=== PATIENT | female | born 1980 | race Caucasian/White ===

== ENCOUNTER 2021-03-24 15:07 | Emergency (ER) | payer OTHER, SELFPAY ==
--- NOTE | ~2021-03-24 | XR_ITS ---
XR cervical spine 4-5V DATE: 03/24/2021 15:44 INDICATION: Posterior neck pain for 4 days following chiropractor visit TECHNIQUE: AP, open-mouth, odontoid, lateral, swimmer views COMPARISON: 10/16/2016 cervical spine FINDINGS: There is straightening of the cervical spine which may be due to muscle spasm. C1 and C2 are normally aligned and the odontoid process is intact. No fracture or dislocation, locked facet or prevertebral soft tissue swelling. There is mild to moderate degenerative disc disease at C5-6. There is mild uncovertebral joint spurri ng at C5-6, greater on the right. IMPRESSION: Straightening of the cervical spine which may be due to muscle spasm Mild/moderate degenerative disc disease and mild uncovertebral joint spurring at C5-6 Reviewed, dictated and finalized at location A. IMPRESSION: Straightening of the cervical spine which may be due to muscle spas m Mild/moderate degenerative disc disease and mild uncovertebral joint spurring a t C5-6
[2021-03-24 15:20] VITALS: BP 139/90; PULSE 62; RESP 16; TEMP 36.7; O2SAT 100
[2021-03-24 15:27] VITALS: BP 139/90; PULSE 62; RESP 16; TEMP 36.7; O2SAT 100
--- NOTE | 2021-03-24 16:05 | ED.NECK ---
HPI - Neck Pain/Injury General Chief Complaint: Neck Pain/Injury Stated Complaint: neck pain Time Seen by Provider: 03/24/21 16:07 Source: patient and RN notes reviewed Mode of arrival: ambulatory Limitations: no limitations History of Present Illness HPI Narrative: 41-year-old female presents concern for acute neck pain without injury. Reports a history of chronic neck pain for which she has been seeing a chiropractor. Reports she has been seeing a chiropractor for 4 weeks reports over the last several days the pain became significantly worse. Reports pain radiates down both arms with some occasional tingling in her fingers. She reports achy arms and headache. She denies weakness in any extremity. She denies fever. Denies rash, redness, bruising, warmth. Reports taking hydrocodone with no relief. Reports using ice and heat with no relief. Reports worsening pain with certain positions. MD complaint: neck pain Related Data Allergies Allergy/AdvReac Type Severity Reaction Status Date / Time amoxicillin Allergy Unknown Hives Unverified 03/24/21 15:27 Penicillins Allergy Unknown Hives Unverified 03/24/21 15:27 Sulfa (Sulfonamide Allergy Unknown Hives Unverified 03/24/21 15:27 Antibiotics) Review of Systems Review of Systems: CONSTITUTIONAL: Denies malaise, chills, sweats, or fever. EYES: Denies visual changes CARDIOVASCULAR: Denies chest pain, palpitations, or edema. RESPIRATORY: Denies cough or dyspnea. SKIN: Denies bruising, redness, warmth, rash or itching. MUSCULOSKELETAL: Reports neck pain that starts at the right base of the skull and radiates down to the trapezius muscles, reports intermittently achy arms and tingling fingers NEUROLOGIC: Denies numbness, weakness. Reports headache. All systems reviewed & are unremarkable except as noted in HPI and below PMFSH Comments At time of signature, agree with nursing past medical, surgical, social and family history. There is no relevant family history pertinent to the presenting complaint Exam Narrative: GENERAL: Well-appearing, well-nourished, and in no acute distress. HEAD: Normocephalic, atraumatic. EYES: PERRLA, sclera clear, and EOMI. No nystagmus. ENT: Mucous membranes moist. NECK: Supple. No lymphadenopathy. No cervical tenderness CHEST: No respiratory distress. Speaks in full sentences. HEART: Regular rate and rhythm. No murmur heard. Normal peripheral pulses. EXTREMITIES: Bilateral upper extremities have grossly normal range of motion, no edema, normal strength and sensation. SKIN: Warm, dry, no visible rash. NEURO: Alert and oriented x3. PSYCH: Normal mood and affect Course Course Emergency Course: Patient is aware of diagnosis, understands and agrees to treatment plan. Anticipatory guidance given. Patient agrees to follow-up as directed and is aware of reasons to seek care at the emergency department. Portions of this record may have been created with voice recognition software Vital Signs Vital signs: Vital Signs Temperature 98.1 F 03/24/21 15:20 Pulse Rate 62 03/24/21 15:20 Respiratory Rate 16 03/24/21 15:20 Blood Pressure 139/90 03/24/21 15:20 Pulse Oximetry 100 03/24/21 15:20 Temperature 98.1 F 03/24/21 15:27 Pulse Rate 62 03/24/21 15:27 Respiratory Rate 16 03/24/21 15:27 Blood Pressure 139/90 03/24/21 15:27 Pulse Oximetry 100 03/24/21 15:27 Reviewed. MDM - Neck Pain/Injury MDM Narrative Medical decision making narrative: Exam findings and imaging show no acute concerns or changes; patient is non-toxic appearing and is in no distress. Patient is appropriate for outpatient treatment and follow-up. Differential Diagnosis Differential diagnosis: Likely disc disorder of cervical region, closed subluxation of cervical spine, cervical radiculopathy, torticollis and strain of neck muscle Imaging Data My impression: Images reviewed, interpreted by radiologist, agree, see report. Radiologist's impression: XR cervi
[2021-03-24] MEDS: KETOROLAC (*BKC) 60 MG/2 ML VIAL IM (16:22)
== END 2021-03-24 16:34 | disposition home or self-care (01) ==
PROVIDERS: Emergency Provider Nurse Practitioner; PCP Internal Medicine
DX: M62.838 Other muscle spasm (principal)
CPT/HCPCS: 72050; 99213; G0463; J1885

== ENCOUNTER → 2021-12-06 07:02 | Outpatient (CLI) | payer OTHER, SELFPAY ==
--- NOTE | ~2021-12-06 | MR_ITS ---
EXAMINATION: MR cervical spine wo con DATE: 12/06/2021 07:34 INDICATION: Left arm pain with multiple nerve symptoms TECHNIQUE: Magnetic resonance imaging (MRI) of the cervical spine was performed without intravenous c ontrast. Sequences included sagittal T2-weighted FSE, sagittal T2-weighted FS FSE, sagittal T1-weight ed FSE, axial MERGE and axial T2-weighted FSE. COMPARISON: Cervical spine radiographs dated 03/24/2021 FINDINGS: Draining of the normal cervical lordosis. Vertebral body heights are normal. Bone marrow signal int ensity is normal. Mild disc height loss with small endplate osteophytes at C5-C6. Annular fissures at both C5-C6 and C6-C7. Cord signal intensity is normal. Cervical soft tissues are unremarkable. The f ollowing disc levels are specifically discussed: C2-C3: The disc does not extend beyond the endplate margin. There is no uncovertebral joint osteoarth ritis. There is mild bilateral facet joint osteoarthritis. There is no neural foraminal stenosis. The re is no central canal stenosis. C3-C4: The disc does not extend beyond the endplate margin. There is mild left uncovertebral joint os teoarthritis. There is mild left and minimal right facet joint osteoarthritis. There is mild left judah ral foraminal stenosis. There is no central canal stenosis. C4-C5: Disc is mildly bulging. There is mild bilateral uncovertebral joint osteoarthritis. There is m ild left and minimal right facet joint osteoarthritis. There is mild left neural foraminal stenosis. There is no central canal stenosis. C5-C6: Annular fissure with central disc extrusion with disc material extending 304 mm cephalad and c audal to the level of the endplates. There is moderate bilateral uncovertebral joint osteoarthritis. There is mild right and moderate left facet joint osteoarthritis. There is mild right and mild to mod erate left neural foraminal stenosis. There is mild central canal stenosis. C6-C7: Annular fissure and small central disc protrusion. There is mild bilateral, right greater than left uncovertebral joint osteoarthritis. There is minimal bilateral facet joint osteoarthritis. Ther e is mild left neural foraminal stenosis. There is mild central canal stenosis. C7-T1: The disc does not extend beyond the endplate margin. There is mild left uncovertebral joint os teoarthritis. There is mild bilateral facet joint osteoarthritis. There is mild left neural foraminal stenosis. There is no central canal stenosis. IMPRESSION: 1. Mild cervical spondylosis. Reviewed, dictated and finalized at location A.
== END ==
PROVIDERS: PCP Internal Medicine
DX: M79.602 Pain in left arm (principal); M47.892 Other spondylosis, cervical region
CPT/HCPCS: 72141

== ENCOUNTER 2022-07-01 15:26 | Emergency (ER) | payer OTHER, SELFPAY ==
[2022-07-01 15:30] VITALS: BP 120/61; PULSE 70; RESP 16; TEMP 36.5; O2SAT 100
--- NOTE | 2022-07-01 15:32 | ED.URI ---
HPI - URI/Sore Throat General Chief Complaint: Upper Respiratory Infection Stated Complaint: sore throat/cold Time Seen by Provider: 07/01/22 15:35 Source: patient, RN notes reviewed and old records reviewed Mode of arrival: ambulatory Limitations: no limitations History of Present Illness HPI Narrative: 42-year-old female presents to the [facility] with sore throat since Friday night. Denies any other symptoms. Reports child has an ear infection. Has taken ibuprofen, no cough or cold medicine. Related Data Home Medications Medication Instructions Recorded Confirmed No Home Medications 07/01/22 07/01/22 Allergies Allergy/AdvReac Type Severity Reaction Status Date / Time amoxicillin Allergy Unknown Hives Unverified 07/01/22 15:40 Penicillins Allergy Unknown Hives Unverified 07/01/22 15:40 Sulfa (Sulfonamide Allergy Unknown Hives Unverified 07/01/22 15:40 Antibiotics) Review of Systems Review of Systems: All systems reviewed & are unremarkable except as noted in HPI and below Constitutional: Constitutional: Reports no additional constitutional complaints Eyes: Eyes: Reports no additional eye complaints ENT: Reports as per HPI and Reports sore throat Cardiovascular: Cardiovascular: Reports no additional cardiovascular complaints, Denies chest pain and Denies dyspnea Respiratory: Respiratory: Reports no additional respiratory complaints, Denies chest congestion, Denies cough and Denies dyspnea Gastrointestinal: Gastrointestinal: Reports no additional gastrointestinal complaints, Denies abdominal pain, Denies nausea and Denies vomiting Musculoskeletal: Musculoskeletal: Reports no additional musculoskeletal complaints Integumentary/Breasts: Skin/Breast: Reports system reviewed and no additional complaints, except as docu Neurologic: Reports system reviewed and no additional complaints, except as documented Psychiatric: Psychiatric: Reports no additional psychiatric complaints Allergic/Immunologic: Allergic/Immunologic: Reports no additional allergic/immunologic complaints PMFSH Comments At the time of my signature, I reviewed and agree with the nursing past medical, surgical, social, and family history. There is no relevant family history pertinent to the patient complaint. Exam Const: General: cooperative, healthy appearing, comfortable, no acute distress, well developed, alert and well nourished Nutritional Appearance: well nourished Orientation/consciousness: patient oriented x3 Limitations: no limitations HENMT: Head: normal to inspection Ears: hearing grossly normal bilaterally and external ears normal Face/Nose/Sinus: Normal external nose present, Normal nares present, Normal nasal mucous membranes and turbinates present and normal facial exam Face and sinus: normal facial exam Mouth: Yes Normal oral and palatal mucosa present, Yes lip normal and Yes moist mucous membranes Throat: posterior oropharynx normal and uvula midline Eyes: General: appearance normal, both eyes and all related structures Alignment and Position: alignment normal Periorbital: periorbital findings normal Conjunctivae: conjunctivae normal Pupils: Equal, round and reactive pupils present EOM: EOMs intact bilaterally Neck: Neck: normal visual inspection, full ROM, no lymphadenopathy and no meningeal signs Chest: Chest palpation & inspection: normal inspection of the chest Resp: Effort & Inspection: normal respiratory effort and able to speak in complete sentences Auscultation: clear to auscultation bilaterally, no crackles, no rales, no rhonchi and no wheezes Cardio: Rate: regular rate Rhythm: regular rhythm Back/Spine/Pelvis: Cervical Spine: cervical ROM normal Thoracic/Lumbar Spine: No thoracic spinal tenderness Skin: General skin exam: normal color and no rashes or lesions noted Lesions: no lesions Rashes: no rashes Wounds: no wounds Neuro: General: patient oriented x3, gait normal, tone normal, moves all e
== END 2022-07-01 16:01 | disposition home or self-care (01) ==
PROVIDERS: Emergency Provider Nurse Practitioner
DX: J06.9 Acute upper respiratory infection, unspecified (principal); J02.9 Acute pharyngitis, unspecified
CPT/HCPCS: 87081; 87880; 99213; G0463

== ENCOUNTER → 2022-07-24 13:26 | Outpatient (CLI) | payer OTHER, SELFPAY ==
--- NOTE | ~2022-07-24 | XR_ITS ---
EXAMINATION: XR ribs LT 2V w CXR 2V Exam Date/Time: 07/24/2022 13:37 LOSS PREVENTION ANALYST HISTORY: Left sided chest wall pain Comparison: 02/23/18. RESULT: Lines, tubes, and devices: None. Lungs and pleura: Clear. Cardiomediastinal silhouette: Stable. Other: No acute osseous or upper abdominal finding. IMPRESSION: No acute cardiopulmonary process.No acute osseous finding in the left ribs. Reviewed, dictated and finalized at location K. PREVENTION ANALYST
== END ==
PROVIDERS: PCP Internal Medicine; Visit Provider Internal Medicine
DX: R07.89 Other chest pain (principal)
CPT/HCPCS: 71046; 71100

== ENCOUNTER → 2022-08-13 07:41 | Outpatient (CLI) | payer OTHER, SELFPAY ==
--- NOTE | ~2022-08-13 | MMUS_ITS ---
EXAMINATION: MM diagnostic marcelino BI w mauri, US breast LT limited HISTORY: Left superior breast pain TECHNIQUE: ML, MLO and CC 3-D tomosynthesis images of both breasts were performed and synthetic 2-D i mages were generated. CAD analysis was submitted and interpreted. High resolution targeted left breas t ultrasound examination at area of clinical complaint at 12:00 7 cm from the nipple was performed. COMPARISON: None BREAST PARENCHYMAL COMPOSITION: The breasts are extremely dense, which lowers the sensitivity of mamm ography. FINDINGS: MAMMOGRAPHIC FINDINGS: No suspicious mass or architectural distortion, malignant calcification, skin thickening or retractio n is detected. ULTRASOUND: No suspicious mass or shadowing, cyst or other significant abnormality is detected at the area of pat ient complaint of left breast pain at 12:00 7 cm from the nipple. IMPRESSION: 1. No mammographic evidence of malignancy 2. Routine mammographic screening is recommended. BI-RADS Category 1: Negative Reviewed, dictated and finalized at location A. IMPRESSION: 1. No mammographic evidence of malignancy 2. Routine mammographic screening is recommended. BI-RADS Category 1: Negative
== END ==
PROVIDERS: PCP Internal Medicine; Visit Provider Internal Medicine
DX: N64.4 Mastodynia (principal)
CPT/HCPCS: 76642; 77062; 77066; G0279

== ENCOUNTER 2022-11-25 11:45 | Emergency (ER) | payer OTHER, SELFPAY ==
--- NOTE | ~2022-11-25 | XR_ITS ---
XR knee LT min 4V DATE: 11/25/2022 13:29 INDICATION: Left anterior knee pain after injury TECHNIQUE: 5 views COMPARISON: None FINDINGS: Mild particular spurring of the patella consistent with mild osteoarthritis. Joint spaces a re well preserved. No radiopaque intra-articular loose body or, calcinosis. No fracture or dislocatio n or joint effusion. No periosteal reaction or bone destruction. IMPRESSION: Mild patellofemoral osteoarthritis Reviewed, dictated and finalized at location A.
[2022-11-25 11:57] VITALS: BP 130/77; PULSE 80; RESP 16; TEMP 36.6; O2SAT 99
--- NOTE | 2022-11-25 12:17 | ED.LOWEXIN ---
HPI - Extremity Injury (Lower) General Chief Complaint: Extremity Injury, Lower Stated Complaint: Left knee injury Time Seen by Provider: 11/25/22 13:00 Source: patient and RN notes reviewed Mode of arrival: ambulatory Limitations: no limitations History of Present Illness HPI Narrative: 42 year old female presents with concern for left knee injury. She reports 11 weeks ago she was doing a handstand and hit her knee on a wall. She reports very severe pain at that time. She reports she used ice, compression, elevation, ibuprofen. She reports she has not had much improvement, the pain is worse when she sits for a long time or when she has been standing for a long time. She reports it feels like there is a bump on the front of the knee. She denies redness, warmth, decreased sensation, strength, range of motion. Reports she has been modifying her activities to help her knee pain MD complaint: knee injury Related Data Home Medications Medication Instructions Recorded Confirmed No Home Medications 07/01/22 11/25/22 Allergies Allergy/AdvReac Type Severity Reaction Status Date / Time amoxicillin Allergy Mild Hives Verified 11/25/22 11:54 Penicillins Allergy Mild Hives Verified 11/25/22 11:54 Sulfa (Sulfonamide Allergy Mild Hives Verified 11/25/22 11:54 Antibiotics) Review of Systems Review of Systems: CONSTITUTIONAL: Denies malaise, chills, sweats, or fever. SKIN: Denies rash or itching, open skin, laceration, abrasion, redness, warmth, swelling. MUSCULOSKELETAL: Reports left knee pain NEUROLOGIC: Denies numbness, weakness All systems reviewed & are unremarkable except as noted in HPI and below PMFSH Comments At time of signature, agree with nursing past medical, surgical, social and family history. There is no relevant family history pertinent to the presenting complaint Exam Narrative: GENERAL: Well-appearing, well-nourished, and in no acute distress. HEAD: Normocephalic, atraumatic. EYES: PERRLA, conjunctivae clear NECK: Supple. CHEST: Speaks in full sentences. No respiratory distress. HEART: Regular rate and rhythm. Normal and equal peripheral pulses. EXTREMITIES: Left knee has grossly normal strength and sensation, grossly normal range of motion. No edema, erythema, or ecchymosis. Normal sensation with sensitivity to light touch and pain. Anterior knee tenderness. No open wounds, no skin tenting, no devitalized tissue or atrophy, no trophic changes, alignment normal, nearby joints and structures intact. Anterior patella deformity palpable. Distal pulses palpable and equal bilaterally, skin warm, dry, pink. Capillary refill less than 3 seconds. SKIN: Warm, dry, no rash. NEURO: Alert and oriented x3. PSYCH: Normal mood and affect Course Course Emergency Course: Patient is aware of diagnosis, understands and agrees to treatment plan. Anticipatory guidance given. Patient agrees to follow-up as directed and is aware of reasons to seek care at the emergency department. Portions of this record may have been created with voice recognition software Level of Care: Express Care Visit Vital Signs Vital signs: Vital Signs Temperature 97.9 F 11/25/22 11:57 Pulse Rate 80 11/25/22 11:57 Respiratory Rate 16 11/25/22 11:57 Blood Pressure 130/77 11/25/22 11:57 Pulse Oximetry 99 11/25/22 11:57 Oxygen Delivery Room Air 11/25/22 11:57 Temperature 97.9 F 11/25/22 11:57 Pulse Rate 80 11/25/22 11:57 Respiratory Rate 16 11/25/22 11:57 Blood Pressure 130/77 11/25/22 11:57 Pulse Oximetry 99 11/25/22 11:57 Oxygen Delivery Room Air 11/25/22 11:57 Reviewed. MDM - Extremity Injury (Lower) MDM Narrative Medical decision making narrative: Patients injury and pain is consistent with musculoskeletal etiology. No signs of neurological or vascular compromise on exam. Compartments and tissues are soft without signs of compartment syndrome. Pain is felt appropriate for furthe
== END 2022-11-25 13:22 | disposition home or self-care (01) ==
PROVIDERS: Emergency Provider Nurse Practitioner; PCP Internal Medicine
DX: S89.92XA Unspecified injury of left lower leg, initial encounter (principal); W22.09XA Striking against other stationary object, initial encounter
CPT/HCPCS: 73564; 99213; G0463

== ENCOUNTER 2023-05-21 12:36 | Outpatient (RCR) | payer OTHER, SELFPAY ==
[2023-05-22] MEDS: RHO(D) IMMUNE GLOBULIN 300 MCG/2 ML SYRINGE IM (11:47)
== END 2023-08-19 23:59 | disposition home or self-care (01) ==
LOC: ANHLAB 12:36
PROVIDERS: PCP Internal Medicine; Visit Provider Obstetrics & Gynecology
DX: Z29.13 Encounter for prophylactic Rho(D) immune globulin (principal); O36.0190 Maternal care for anti-D [Rh] antibodies, unspecified trimester, not applicable or unspecified; Z3A.00 Weeks of gestation of pregnancy not specified
CPT/HCPCS: 36415; 85461; 86850; 86900; 86901; 90384; 96372; J2790

== ENCOUNTER 2023-07-30 11:27 | Outpatient (CLI) | payer OTHER, SELFPAY ==
[2023-07-30 12:01] VITALS: BP 126/81; PULSE 76
[2023-07-30 12:13] LABS: Basophils Percent Auto 0.4 % (0.2-1.2); Eosinophils Absolute Auto 0.1 K/mm3 (0-0.3); Eosinophils Percent Auto 0.6 % (0-4.4); Hematocrit 36.3 % (37.0-47.0); Hemoglobin 12.5 g/dL (12.0-15.0); Immature Granulocyte Absolute 0.07 K/mm3 (0.00-0.031); Immature Granulocyte Percent A 0.7 % (0-0.5); Lymphocytes Absolute Auto 1.73 K/mm3 (0.9-3.2); Mean Corpuscular HGB Conc 34.4 g/dl (32-36); Mean Corpuscular Hemoglobin 32.3 pg (26-34); Mean Corpuscular Volume 93.8 fl (80-100); Monocytes Absolute Auto 0.7 K/mm3 (0.1-0.6); Monocytes Percent Auto 7.2 % (2.6-8.5); Neutrophils Percent Auto 73.1 % (45.5-73.1); Platelet Count Result 187 k/mm3 (150-375); Red Blood Count 3.87 M/mm3 (4.2-5.4); Red Cell Distribution Width 12.7 % (11.5-14.5); White Blood Count 9.6 K/mm3 (4.5-10.0)
[2023-07-30 12:15] VITALS: BP 124/75; PULSE 79
[2023-07-30 12:18] LABS: Appearance Urine Cloudy (Clear); Bacteria Urine None Seen /hpf; Bilirubin Urine Negative (Negative); Blood Urine Negative (Negative); Color Urine Yellow (Yellow); Glucose Urine UA Negative (Negative); Ketones Urine Negative (Negative); Leukocyte Esterase Ur Negative LEU/UL (Negative); Nitrate Urine Negative (Negative); Non Pathogenic Casts 0-2; Protein Urine Negative (Negative); RBC Urine 0-2 /hpf (0-2); Specific Grav Ur 1.008 (1.001-1.035); Squamous Epithelial Cell Urine Occasional /hpf (Few); Urobilinogen Urine 0.2 mg/dL (<2.0); WBC Urine 0-5 /hpf
[2023-07-30 12:22] LABS: Alanine Aminotransferase 17 U/L (6-35); Albumin Level 3.6 g/dL (3.5-5.1); Alkaline Phosphatase 122 U/L (38-126); Anion Gap 5 mmol/L (8-16); Aspartate Amino Transferase 29 U/L (14-36); Bilirubin,Total 0.3 mg/dL (0.2-1.3); Blood Urea Nitrogen 13 mg/dL (7-17); Calcium 9.3 mg/dL (8.4-10.2); Carbon Dioxide 21 mmol/L (22-30); Chloride 109 mmol/L (98-107); Estimated Glomerular Filt Rate > 60; Glucose 84 mg/dL (65-110); Potassium 3.9 mmol/L (3.4-5.0); Sodium 135 mmol/L (137-145); Uric Acid 6.8 mg/dL (2.5-7.5)
[2023-07-30 12:25] LABS: Creatinine Urine 28.9 mg/dL; Total Protein Urine Random 8 mg/dL; Ur Ttl Prot Creatinine Ratio 0.28 mg/mg (0-0.20)
[2023-07-30 12:30] VITALS: BP 129/76; PULSE 78
[2023-07-30 12:37] LABS: Add Urine Microscopic? YES
--- NOTE | 2023-07-30 12:37 | PM.OBTRLD ---
OB - Triage/Final Diagnosis Visit Information Date of evaluation: 07/30/23 Reason for evaluation: other (pI) Comments/Additional reasons for admission: I have assessed the risk for this patient, Brenda Interiano, and determined that she would benefit from observation care. Evaluation Laboratory results: Laboratory Tests 07/30/23 12:02 WBC 9.6 RBC 3.87 L Hgb 12.5 Hct 36.3 L MCV 93.8 MCH 32.3 MCHC 34.4 RDW 12.7 Plt Count 187 MPV 11.0 H Immature Gran % (Auto) 0.7 H Neut % (Auto) 73.1 Lymph % (Auto) 18.0 L Carter % (Auto) 7.2 Eos % (Auto) 0.6 Baso % (Auto) 0.4 Lymph # (Auto) 1.73 Carter # (Auto) 0.7 H Eos # (Auto) 0.1 Baso # (Auto) 0.0 Abs Immat Gran (auto) 0.07 H Absolute Neuts (auto) 7.0 H Absolute Nucleated RBC 0.0 Nucleated RBC % 0.0 Sodium 135 L Potassium 3.9 Chloride 109 H Carbon Dioxide 21 L Anion Gap 5 L BUN 13 Creatinine 0.70 Estim Creat Clear Calc Not Reportable Estimated GFR > 60 Glucose 84 Uric Acid 6.8 Calcium 9.3 Total Bilirubin 0.3 AST 29 ALT 17 Alkaline Phosphatase 122 Total Protein 6.0 L Albumin 3.6 Urine Color Yellow Urine Appearance Cloudy H Urine pH 7.0 Ur Specific [place] 1.008 Urine Protein Negative Urine Glucose (UA) Negative Urine Ketones Negative Ur Blood (Man) Negative Urine Nitrate Negative Urine Bilirubin Negative Urine Urobilinogen 0.2 Leukocyte Esterase Rfl Negative Urine RBC 0-2 Urine WBC 0-5 Ur Squamous Epith Cells Occasional Urine Bacteria None seen Urine Casts 0-2 U Random Total Protein 8 Urine Creatinine 28.9 Vital signs: Vital Signs - 24 hr 07/30/23 12:01 07/30/23 12:15 07/30/23 12:30 Pulse Rate 76 79 78 Blood Pressure 126/81 124/75 129/76
--- NOTE | 2023-07-30 12:39 | PC.NURSE ---
Dr Kraft informed of lab results, BP and reactive NST. Ok to dc home with precautions.
[2023-07-30 12:45] VITALS: BP 126/81; PULSE 78
== END 2023-07-30 12:45 | disposition home or self-care (01) ==
LOC: ANHOBOP 11:38 → ANHOBPP 11:39
PROVIDERS: PCP Internal Medicine; Visit Provider Obstetrics & Gynecology
DX: O13.9 Gestational [pregnancy-induced] hypertension without significant proteinuria, unspecified trimester (principal); Z3A.00 Weeks of gestation of pregnancy not specified
CPT/HCPCS: 36415; 59025; 80053; 81001; 82570; 84156; 84550; 85025; 99199

== ENCOUNTER 2023-08-07 06:52 | Inpatient (IN) | payer OTHER, SELFPAY ==
[2023-08-07] VITALS (17 sets, daily range): BP systolic 133–144; BP diastolic 70–90; PULSE 75–87; TEMP 36.1–36.8; BMI 29.2
--- NOTE | ~2023-08-07 | US_ITS ---
US venous doppler LE RT DATE: 08/09/2023 10:45 INDICATION: Right calf pain TECHNIQUE: Real-time and color flow imaging and Doppler analysis of the veins of the right lower extr emity COMPARISON: None FINDINGS: The right greater saphenous vein is patent. There is spontaneous and phasic flow and normal augmentation and compression of the deep veins of the right lower extremity. IMPRESSION: No evidence of deep venous thrombosis of right lower extremity Reviewed, dictated and finalized at [facility]. Reviewed, dictated and finalized at [facility]. [facility]
--- NOTE | 2023-08-07 07:04 | P.HP_ITS ---
H&P: HPI History of Present Illness Date/Time: 08/07/23 07:04 Chief Complaint: Gestational hypertension at term Narrative: 43-year-old 4 para 3 last menstrual period uncertain EDC 08/08/2023, confirmed by early ultrasound presents for induction of labor secondary to elevated blood pressures she has slight headache yesterday but headache has otherwise complicated with B strep diabetic screen. 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 Gender identity (if verbalized by the patient): Female Spiritual care concerns: No Meds Home Medications and Allergies Home Medications Medication Instructions Recorded Confirmed Type vits no.126-ferrous fum 1 tablet PO DAILY 07/23/23 07/23/23 History 28 mg iron-folic acid 800 mcg tablet (Classic ) Allergies Allergy/AdvReac Type Severity Reaction Status Date / Time amoxicillin Allergy Mild Hives Verified 07/23/23 13:25 Penicillins Allergy Mild Hives Verified 07/23/23 13:25 Sulfa (Sulfonamide Allergy Mild Hives Verified 07/23/23 13:25 Antibiotics) Exam 2 Const: General: cooperative, healthy appearing and comfortable Nutritional Appearance: average body habitus Orientation/consciousness: oriented to person, oriented to place and oriented to time HENMT: Head: normal to inspection Resp: Effort & Inspection: normal respiratory effort Cardio: Rate: regular rate Rhythm: regular rhythm Heart sounds: S1 normal heart sound present and S2 normal heart sound present GI: Inspection: normal to inspection ( gravid soft uterus) : External Female Exam: normal external appearance Speculum Exam - Vagina: normal appearance of the vagina Speculum Exam - Cervix: normal appearance of the cervix ( /2. FHTs reassuring) Assessment and Plan Assessment and plan (1) Term : Code(s): Z34.90 - Encounter for supervision of normal , unspecified, unspecified trimester Status: Acute (2) Gestational hypertension: Code(s): O13.9 - Gestational [-induced] hypertension without significant proteinuria, unspecified trimester Status: Acute Plan medical induction of labor. PIH labs will be drawn. She has an epidural candidate
[2023-08-07 07:32] LABS: Basophils Absolute Auto 0.1 K/mm3 (0.0-0.1); Basophils Percent Auto 0.6 % (0.2-1.2); Eosinophils Absolute Auto 0.1 K/mm3 (0-0.3); Eosinophils Percent Auto 0.8 % (0-4.4); Hematocrit 36.6 % (37.0-47.0); Hemoglobin 12.4 g/dL (12.0-15.0); Immature Granulocyte Absolute 0.07 K/mm3 (0.00-0.031); Immature Granulocyte Percent A 0.7 % (0-0.5); Lymphocytes Absolute Auto 2.16 K/mm3 (0.9-3.2); Lymphocytes Percent Auto 21.4 % (18.3-44.2); Mean Corpuscular HGB Conc 33.9 g/dl (32-36); Mean Corpuscular Hemoglobin 32.3 pg (26-34); Mean Corpuscular Volume 95.3 fl (80-100); Mean Platelet Volume 11.1 fl (7.4-10.4); Monocytes Absolute Auto 0.7 K/mm3 (0.1-0.6); Monocytes Percent Auto 7.1 % (2.6-8.5); Neutrophils Percent Auto 69.4 % (45.5-73.1); Platelet Count Result 188 k/mm3 (150-375); Red Blood Count 3.84 M/mm3 (4.2-5.4); Red Cell Distribution Width 12.7 % (11.5-14.5); White Blood Count 10.1 K/mm3 (4.5-10.0)
[2023-08-07 07:42] LABS: Alanine Aminotransferase 17 U/L (6-35); Albumin Level 3.3 g/dL (3.5-5.1); Alkaline Phosphatase 113 U/L (38-126); Anion Gap 4 mmol/L (8-16); Aspartate Amino Transferase 26 U/L (14-36); Bilirubin,Total 0.3 mg/dL (0.2-1.3); Blood Urea Nitrogen 11 mg/dL (7-17); Calcium 8.9 mg/dL (8.4-10.2); Carbon Dioxide 19 mmol/L (22-30); Chloride 110 mmol/L (98-107); Estimated Glomerular Filt Rate > 60; Glucose 95 mg/dL (65-110); Potassium 3.8 mmol/L (3.4-5.0); Sodium 133 mmol/L (137-145); Uric Acid 6.4 mg/dL (2.5-7.5)
--- NOTE | 2023-08-07 08:26 | LDADM ---
This patient, Brenda Interiano, was admitted to Labor/Delivery/Recovery 105 on 08/07/23 at 06:52. Plans for labor, pain management and were discussed with patient. Patient/family oriented to hospital policies and general routines including ID bracelet, bed and alarms, visiting hours, pain management, procedures, bathroom and other care routines, personal items, smoking policy, room service/diet and guest tray routines, security routines, and visiting hours. Patient/Family are encouraged to report perceived risks to care and to ask questions if they do not understand what they are told or what they should do. See [facility] for further documentation.
--- NOTE | 2023-08-07 08:43 | WPDANESEPP ---
Anes - Eval Pre Procedure Procedure: Labor Epidural Date/Time: 08/07/23 08:43 Surgeon: Keyana Queen Preop Diagnosis: Pain during labor Pre Op Diagnosis: IOL Patient Data Age: 43 Gender: F Height: 1.7 m Weight: 84.54 kg Last Vital Signs Temp 36.8 C 08/07/23 07:32 Pulse 83 08/07/23 07:46 BP 133/83 08/07/23 07:46 Allergies Allergy/AdvReac Type Severity Reaction Status Date / Time amoxicillin Allergy Mild Hives Verified 07/23/23 13:25 Penicillins Allergy Mild Hives Verified 07/23/23 13:25 Sulfa (Sulfonamide Allergy Mild Hives Verified 07/23/23 13:25 Antibiotics) Home Medications Medication Instructions Recorded Confirmed Type vits no.126-ferrous fum 1 tablet PO DAILY 07/23/23 07/23/23 History 28 mg iron-folic acid 800 mcg tablet (Classic ) Laboratory Tests 08/07/23 07:20 WBC 10.1 H K/mm3 (4.5-10.0) RBC 3.84 L M/mm3 (4.2-5.4) Hgb 12.4 g/dL (12.0-15.0) Hct 36.6 L % (37.0-47.0) MCV 95.3 fl (80-100) MCH 32.3 pg (26-34) MCHC 33.9 g/dl (32-36) RDW 12.7 % (11.5-14.5) Plt Count 188 k/mm3 (150-375) MPV 11.1 H fl (7.4-10.4) Immature Gran % (Auto) 0.7 H % (0-0.5) Neut % (Auto) 69.4 % (45.5-73.1) Lymph % (Auto) 21.4 % (18.3-44.2) [place] % (Auto) 7.1 % (2.6-8.5) Eos % (Auto) 0.8 % (0-4.4) Baso % (Auto) 0.6 % (0.2-1.2) Lymph # (Auto) 2.16 K/mm3 (0.9-3.2) [place] # (Auto) 0.7 H K/mm3 (0.1-0.6) Eos # (Auto) 0.1 K/mm3 (0-0.3) Baso # (Auto) 0.1 K/mm3 (0.0-0.1) Abs Immat Gran (auto) 0.07 H K/mm3 (0.00-0.031) Absolute Neuts (auto) 7.0 H K/mm3 (1.3-6.7) Absolute Nucleated RBC 0.0 K/mm3 (0.0-0.012) Nucleated RBC % 0.0 % (0.0-0.2) Sodium 133 L mmol/L (137-145) Potassium 3.8 mmol/L (3.4-5.0) Chloride 110 H mmol/L (98-107) Carbon Dioxide 19 L mmol/L (22-30) Anion Gap 4 L mmol/L (8-16) BUN 11 mg/dL (7-17) Creatinine 0.70 mg/dL (0.7-1.0) Estim Creat Clear Calc Not Reportable Estimated GFR > 60 (59 - ) Glucose 95 mg/dL (65-110) Uric Acid 6.4 mg/dL (2.5-7.5) Calcium 8.9 mg/dL (8.4-10.2) Total Bilirubin 0.3 mg/dL (0.2-1.3) AST 26 U/L (14-36) ALT 17 U/L (6-35) Alkaline Phosphatase 113 U/L (38-126) Total Protein 6.0 L g/dL (6.3-8.2) Albumin 3.3 L g/dL (3.5-5.1) RPR Pending Patient hx anesthesia problems: none Family hx anesthesia problems: none Results Review: All pre-operative results and documents have been reviewed as part of the pre-operative evaluation. [facility] Past Medical History Medical History Bursitis, prepatellar, left Surgical History Surgical History H/O shoulder surgery (~2010) Family History Family History Unknown Heart disease Social History Social History Smoking status: Never smoker Second hand tobacco smoke exposure: No Alcohol intake: never Substance use: never Do You Feel Safe in your Home?: Yes Lack of Transportation: No Lack of Food: Never True Current Housing: I Have Housing Concerned About Future Housing: No Difficulty Paying Gas/Electric Bills: No Difficulty Paying for Meds: No Currently Unemployed: No Education: Don't Know Difficulty w/ Childcare or Family Care: No Living arrangements: with family Occupation/Education: occupation 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
[2023-08-07 11:12] LABS: Rapid Plasma Reagin Non-Reactive (NonReactive)
--- NOTE | 2023-08-07 11:36 | PM.OBPNLAB ---
Pain Control Date/time seen: 08/07/23 11:36 Pain control: tolerating well Pelvic Exam Dilation (cm): 3 station: -2 Amniotic membrane status: Leaking Comments: no pit yet per patient wishes
--- NOTE | 2023-08-07 16:35 | PM.OBPNLAB ---
Pain Control Date/time seen: 08/07/23 16:35 Pain control: tolerating well Pelvic Exam Dilation (cm): 4 Effacement (%): 90 station: -2 Amniotic membrane status: Leaking
--- NOTE | 2023-08-07 22:20 | PM.OBPNLAB ---
Pain Control Date/time seen: 08/07/23 22:20 Pain control: tolerating well Pelvic Exam Dilation (cm): 7 Effacement (%): 90 station: -1 Amniotic membrane status: Leaking
[2023-08-07] MEDS: METHYLERGONOVINE MALEATE 0.2 MG/ML VIAL IM (23:20)
--- NOTE | 2023-08-07 23:25 | P.PCNOB_ITS ---
OB - Vaginal Delivery Note Procedure Delivery date: 08/07/23 Events: Gestational Hypertension Induction method: AROM Delivery monitor: External FHT and External Uterine Route of delivery: Episiotomy description: None Laceration Description: None Specimen: No Quantitative Blood Loss (ml): 61 Anesthesia type: None Disposition: Floor Complications: No immediate complications [place] Baby Date of : 08/07/23 Time of : 23:16 Weeks of gestation at delivery: 39 Infant gender: Female presentation: vertex position: Right Occiput Anterior Placenta delivery description: Spontaneous Cord Vessel Description: 3 Vessels, Nuchal Cord, Tight and Clamped/Cut score one minute: 8 score five minutes: 9
--- NOTE | 2023-08-07 23:26 | PM.DS ---
DS: Admitting Diagnosis Discharge Date 08/09/23 Admitting Diagnosis Term / gestational hypertension DS: Discharge Diagnosis Discharge Diagnosis (1) Gestational hypertension: Code(s): O13.9 - Gestational [-induced] hypertension without significant proteinuria, unspecified trimester Status: Acute (2) Term : Code(s): Z34.90 - Encounter for supervision of normal , unspecified, unspecified trimester Status: Acute DS: Summary Hospital Course Reason for hospitalization: patient was admitted for induction of labor secondary to elevated blood pressures at 39 weeks gestation Hospital Course: patient underwent spontaneous vaginal delivery with no pain medicine 08/07/2023. Her hospital course unremarkable. She remained afebrile. She was up, voiding without difficulty, eating regular diet, ambulating, breast-feeding, generally without complaints. Time Spent with Patient Time attestation: Total time spent providing and/or coordinating discharge services: Exam Const: General: cooperative, healthy appearing and comfortable Nutritional Appearance: average body habitus Orientation/consciousness: oriented to person, oriented to place and oriented to time Resp: Effort & Inspection: normal respiratory effort Cardio: Rate: regular rate Rhythm: regular rhythm Heart sounds: S1 normal heart sound present and S2 normal heart sound present GI: Inspection: normal to inspection ( Fundus firm below the umbilicus) DS: Data Data Completed and Pending Labs on day of discharge: Labs from last 24 hours 08/07/23 07:20 WBC 10.1 H RBC 3.84 L Hgb 12.4 Hct 36.6 L MCV 95.3 MCH 32.3 MCHC 33.9 RDW 12.7 Plt Count 188 MPV 11.1 H Immature Gran % (Auto) 0.7 H Neut % (Auto) 69.4 Lymph % (Auto) 21.4 [place] % (Auto) 7.1 Eos % (Auto) 0.8 Baso % (Auto) 0.6 Lymph # (Auto) 2.16 [place] # (Auto) 0.7 H Eos # (Auto) 0.1 Baso # (Auto) 0.1 Abs Immat Gran (auto) 0.07 H Absolute Neuts (auto) 7.0 H Absolute Nucleated RBC 0.0 Nucleated RBC % 0.0 Sodium 133 L Potassium 3.8 Chloride 110 H Carbon Dioxide 19 L Anion Gap 4 L BUN 11 Creatinine 0.70 Estim Creat Clear Calc Not Reportable Estimated GFR > 60 Glucose 95 Uric Acid 6.4 Calcium 8.9 Total Bilirubin 0.3 AST 26 ALT 17 Alkaline Phosphatase 113 Total Protein 6.0 L Albumin 3.3 L RPR Non-reactive Blood Type AB Negative Antibody Screen Positive Antibody Identification Inconclusive Antigen Identification TNP KETAN, IgG Interpret Not Performed KETAN, Poly Interpret Negative KETAN, Complement Interp Not Performed Discharge Plan Discharge Attending physician on discharge: Brayan Allen Discharging Clinician: Lalita Wadsworth Patient Disposition: Home, Self-Care Activity: may shower and pelvic rest Diet: heart healthy Wound Care Instructions: follow printed instructions Discharge Instructions: Education: Mom and Baby Guide Given to: Mother Follow-Up: Call your delivering provider's office for an appointment to be seen. Mom and baby should come to the [facility] for the follow-up appointment. Appointment Date/Time: August 11, 2023 at 11:00 am What to expect at your follow-up visit: Physical Assessment Call [phone] if you are unable to keep your appointment time. BREAST CARE: * Wear a snug supportive bra. * For engorgement discomfort: Breast Feeding: * Apply warm moist washcloths * Express milk as needed to relieve engorgement * Wear loose clothing * For sore nipples: * Identify correct latch-on * Apply warm moist washcloths before and after nursing * Air dry nipples after nursing * May apply Lansinoh cream to nipples PERINEAL CARE: * Until bleeding stops, use your teri bottle after urinating * Change your pad frequently throughout the day * You may take sitz baths
[2023-08-08] VITALS (10 sets, daily range): BP systolic 115–159; BP diastolic 64–88; PULSE 62–91; RESP 16–18; TEMP 36.6–37.1; O2SAT 99
[2023-08-08] MEDS: IBUPROFEN 600 MG TABLET PO (02:08)
[2023-08-08] MEDS: WITCH HAZEL 40 PADS 1 PAD TOPICAL (02:15)
[2023-08-08] MEDS: BENZOCAINE 20% AER SPR (*SP) 56 GM CAN 1 SPRAY TOPICAL (02:15)
[2023-08-08] MEDS: ACETAMINOPHEN 325 MG TABLET 650 MG PO (05:24)
[2023-08-08 05:37] LABS: Hematocrit 37.3 % (37.0-47.0); Hemoglobin 12.5 g/dL (12.0-15.0)
--- NOTE | 2023-08-08 05:59 | P.PNOB_ITS ---
OB - PN: Subj Subjective Date/time seen: 08/08/23 05:59 Patient comments: no complaints and pain well controlled baby status: doing well and nursing well OB - PN: Obj Data Labs 08/08/23 05:16 08/07/23 07:20 Labs: Laboratory Results - last 24 hr 08/07/23 08/08/23 07:20 05:16 WBC 10.1 H RBC 3.84 L Hgb 12.4 12.5 Hct 36.6 L 37.3 MCV 95.3 MCH 32.3 MCHC 33.9 RDW 12.7 Plt Count 188 MPV 11.1 H Immature Gran % (Auto) 0.7 H Neut % (Auto) 69.4 Lymph % (Auto) 21.4 [place] % (Auto) 7.1 Eos % (Auto) 0.8 Baso % (Auto) 0.6 Lymph # (Auto) 2.16 [place] # (Auto) 0.7 H Eos # (Auto) 0.1 Baso # (Auto) 0.1 Abs Immat Gran (auto) 0.07 H Absolute Neuts (auto) 7.0 H Absolute Nucleated RBC 0.0 Nucleated RBC % 0.0 Sodium 133 L Potassium 3.8 Chloride 110 H Carbon Dioxide 19 L Anion Gap 4 L BUN 11 Creatinine 0.70 Estim Creat Clear Calc Not Reportable Estimated GFR > 60 Glucose 95 Uric Acid 6.4 Calcium 8.9 Total Bilirubin 0.3 AST 26 ALT 17 Alkaline Phosphatase 113 Total Protein 6.0 L Albumin 3.3 L RPR Non-reactive Blood Type AB Negative Antibody Screen Positive Antibody Identification Inconclusive Antigen Identification TNP KETAN, IgG Interpret Not Performed KETAN, Poly Interpret Negative KETAN, Complement Interp Not Performed OB - PN A/P Plan day: 1 Plan: routine care Time Spent With Patient Time: Total time spent is greater than 50% in coordination of care (as documented) at patient's floor/unit and/or counseling patient: Time with patient: less than 15 minutes Exam Const: General: cooperative, healthy appearing and comfortable Nutritional Appearance: average body habitus Orientation/consciousness: oriented to person, oriented to place and oriented to time Resp: Effort & Inspection: normal respiratory effort Cardio: Rate: regular rate Rhythm: regular rhythm Heart sounds: S1 normal heart sound present and S2 normal heart sound present GI: Inspection: normal to inspection
--- NOTE | 2023-08-08 09:23 | PC.NURSE ---
Pt desires to take her home supply for her PNV.
--- NOTE | 2023-08-08 13:55 | PC.NURSE ---
[id number] Introductions were made and Mother verbalizes she is able to independently latch infant with appropriate positioning and no pain. She is responsively . is currently meeting outcomes for weight, output, jaundice, blood sugar and feeding frequencies of 8-12 times in 24 hours. Mother declines any additional assistance or education at this time. Mother is encouraged to call for assistance if her infant doesn?t latch, pain with latching, questions or concerns. Mother voiced understanding of information shared along with the mom/baby guide for an additional resource. Reported to the Primary RN.
[2023-08-09 07:49] VITALS: BP 125/68; PULSE 60; RESP 18; TEMP 37.2; O2SAT 99
--- NOTE | 2023-08-09 10:03 | PM.OBPNVD ---
OB - PN: Subj Subjective Date/time seen: 08/09/23 10:03 Interval history: c/o sharp pain just below right knee and into calf since just before labor. Worse in labor then a little better and now a little worse Patient comments: pain well controlled baby status: doing well [place] feeding status: exclusively breast feeding OB - PN: Obj Data Labs 08/08/23 05:16 08/07/23 07:20 OB - PN A/P Plan day: 2 Plan: routine care Comments: Will check doppler of leg to verify no DVT. Discussed with couple unlikely but to be sure would like to check. If normal, plan to dc home. BP's normal range and no PIH symptoms Time Spent With Patient Time: Total time spent is greater than 50% in coordination of care (as documented) at patient's floor/unit and/or counseling patient: Exam : Bimanual exam- vagina & uterus: other (Uterus firm, nt @U) Extrem: General: other (right upper calf pain; + homans; trace edema but equal bilateral )
--- NOTE | 2023-08-09 10:30 | PC.NURSE ---
Pt to US via wheelchair for doppler ultrasound on rt lower extremity.
[2023-08-11 11:37] VITALS: BP 127/72; PULSE 76; RESP 18; TEMP 36.5; O2SAT 99
== END 2023-08-09 12:27 | disposition home or self-care (01) | DRG 807 ==
LOC: ANHLDR 23:28 → ANHOB2 08-09 11:14 → ANHLDR 08-11 12:15 → ANHOB2 08-11 12:15
PROVIDERS: Admitting Provider Obstetrics & Gynecology; PCP Internal Medicine; Visit Provider Obstetrics & Gynecology Gynecology
DX: O13.4 Gestational [pregnancy-induced] hypertension without significant proteinuria, complicating childbirth (principal); Z37.0 Single live birth; Z3A.39 39 weeks gestation of pregnancy; O77.0 Labor and delivery complicated by meconium in amniotic fluid; O69.1XX0 Labor and delivery complicated by cord around neck, with compression, not applicable or unspecified
CPT/HCPCS: 36415; 80053; 84550; 85014; 85018; 85025; 86592; 86850; 86880; 86900; 86901; 86902; 93971; A9270; J2210

== ENCOUNTER 2024-04-23 11:48 | Emergency (ER) | payer OTHER, SELFPAY ==
[2024-04-23 11:54] VITALS: BP 148/85; PULSE 69; RESP 20; TEMP 35.5; O2SAT 100
--- NOTE | 2024-04-23 13:46 | ED_ITS ---
HPI - Eye Problem General Chief complaint: Eye Problems Stated complaint: RASH ?SHINGLES IN R EYE Time Seen by Provider: 04/23/24 13:14 History of Present Illness HPI Narrative: 44-year-old female presenting with a rash. States that she has been having right flank pain for the last several days and then she developed some lesions yesterday. Today she woke up with pain and redness of her right eye so she called her doctor who advised that she come in for evaluation. No vision guerrero es. States that she is now feeling better. Related Data Home Medications Medication Instructions Recorded Confirmed vits no.126-ferrous fum 1 tablet PO DAILY 07/23/23 07/23/23 28 mg iron-folic acid 800 mcg tablet (Classic ) Allergies Allergy/AdvReac Type Severity Reaction Status Date / Time amoxicillin Allergy Mild Hives Verified 07/23/23 13:25 Penicillins Allergy Mild Hives Verified 07/23/23 13:25 Sulfa (Sulfonamide Allergy Mild Hives Verified 07/23/23 13:25 Antibiotics) Review of Systems Review of Systems: All systems reviewed & are unremarkable except as noted in HPI and below PMFSH Past Medical History Medical History Bursitis, prepatellar, left Surgical History Surgical History H/O shoulder surgery (~2010) Family History Family History Unknown Heart disease Social History Social History Smoking status: Never smoker Second hand tobacco smoke exposure: No Alcohol intake: never Substance use: never Do You Feel Safe in your Home?: Yes Lack of Transportation: No Lack of Food: Never True Current Housing: I Have Housing Concerned About Future Housing: No Difficulty Paying Gas/Electric Bills: No Difficulty Paying for Meds: No Currently Unemployed: No Education: Don't Know Difficulty w/ Childcare or Family Care: No Living arrangements: with family Occupation/Education: occupation 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 HEAD: Normocephalic, atraumatic. EYES: PERRLA and EOMI. mild erythema lateral to R eye, no skin lesions noted, conjunctiva very mildly injected; no dendritic lesions or lacerations or abrasions appreciated w/fluorescein ENT: Mucous membranes moist. NECK: Supple. CHEST: No respiratory distress. HEART: Regular rate and rhythm EXTREMITIES: Normal range of motion. SKIN: Warm, dry, R flank with several vesicular lesions, no obvious drainage NEURO: Alert and oriented x3. PSYCH: Normal mood and affect. Course Vital Signs Vital signs: Vital Signs Temperature 95.9 F L 04/23/24 11:54 Pulse Rate 69 04/23/24 11:54 Respiratory Rate 20 04/23/24 11:54 Blood Pressure 148/85 H 04/23/24 11:54 Pulse Oximetry 100 04/23/24 11:54 Oxygen Delivery Room Air 04/23/24 11:54 Temperature 98.0 F 04/23/24 14:19 Pulse Rate 56 L 04/23/24 14:19 Respiratory Rate 16 04/23/24 14:19 Blood Pressure 133/78 04/23/24 14:19 Pulse Oximetry 100 04/23/24 14:19 Oxygen Delivery Room Air 04/23/24 11:54 MDM - Eye Problem MDM Narrative Medical decision making narrative: 44-year-old female presenting with rash and right eye pain. Vitals are stable. Exam remarkable for the above. The lesions on her right flank are consistent with shingles. She has some mild erythema lateral to the right eye but I do not appreciate any vesicular lesions on her face. No abnormal corneal lesions with fluorescein stain. Visual acuity is intact. She is safe for outpatient management. Discussed appropriate supportive care. Will get her started on acyclovir. Discussed appropriate return precautions and close follow-up. She is agreeable this plan. Discharged in stable condition. Differential Diagnosis Differential diagnosis: Likely corneal abrasion, conjunctivitis and corneal ulcer Medical Records Attestation: I reviewed the patient's medical records. Critical Care Time Critical Care Time Critical Care Time: No Discharge Plan Discharge Clinical Impression: Shingles Patient Disposition: Home, Self-Care Condition: Stable Instructions: Antibiotic Form, Shingles (ED) Additional Instructions: We are treating you with an antiviral medication for a shingles outbreak. Please use Tylenol and ibuprofen for pain control. Please follow-up closely with your PCP. If your symptoms worsen or other concerning symptoms arise, please return to the ER. Prescriptions: New valacyclovir 1 gram tablet 1,000 mg PO Q8H 7 Days Qty: 21 0RF No Action Classic 28 mg iron- 800 mcg Tablet 1 tablet PO DAILY Follow-up/Referrals: Massiel Pérez MD [Primary Care Provider] -
[2024-04-23] MEDS: TETRACAINE HCL 0.5% OPHTH SOLN 4 ML BTL 1 DROP EACH EYE (13:47)
[2024-04-23] MEDS: FLUORESCEIN SOD 1 MG/STRIP EACH EYE (13:47)
[2024-04-23 14:19] VITALS: BP 133/78; PULSE 56; RESP 16; TEMP 36.7; O2SAT 100
== END 2024-04-23 14:20 | disposition home or self-care (01) ==
PROVIDERS: Emergency Provider Emergency Medicine; PCP Internal Medicine
DX: B02.9 Zoster without complications (principal)
CPT/HCPCS: 99283

== ENCOUNTER 2024-09-11 11:22 | Outpatient (CLI) | payer OTHER, SELFPAY ==
--- NOTE | ~2024-09-11 | XR_ITS ---
Right Knee Technique: AP, lateral, and sunrise views were obtained. Clinical History: Pain Findings: No fracture or dislocation is seen. Osseous alignment is anatomic. Joint spaces are preserv ed without degenerative or erosive change. Questionable small loose bodies in the joint. No joint eff usion is seen. Impression: Questionable small loose bodies. Reviewed, dictated and finalized at location . Impression: Questionable small loose bodies.
== END 2024-09-11 11:23 | disposition home or self-care (01) ==
PROVIDERS: PCP Chiropractor; Visit Provider Chiropractor
DX: M25.561 Pain in right knee (principal)
CPT/HCPCS: 73564

== ENCOUNTER 2024-09-24 08:19 | Outpatient (CLI) | payer OTHER, SELFPAY ==
--- NOTE | ~2024-09-24 | MR_ITS ---
EXAMINATION: MR knee RT wo con DATE: 09/24/2024 08:59 INDICATION: Right knee pain TECHNIQUE: Magnetic resonance imaging (MRI) of the right knee was performed without intravenous contr ast. Sequences included coronal PD-weighted FSE, coronal PD-weighted FS FSE, sagittal T2-weighted FS E, sagittal PD-weighted FS FSE and axial PD weighted fat saturated FSE. COMPARISON: None. FINDINGS: Medial compartment: Medial meniscus is normal. Articular cartilage is normal. Lateral compartment: Lateral meniscus is normal. Deep chondral ulceration with underlying edema-like signal change at the posterior medial and lateral tibial plateau. Remaining articular cartilage is normal. Patellofemoral compartment: Partial-thickness chondral ulceration and fissuring with mild underlying subarticular signal change a t the patellar apical ridge and medial facet is at the anterior aspect of the medial trochlea. Ligaments and tendons: Anterior and posterior cruciate ligaments are normal. The medial collateral ligament and fibular norm ateral ligament complex are normal. Patellar tendon is normal. Mild distal patellar tendinopathy with out tear. The visualized medial and lateral hamstring tendons as well as the iliotibial band are norm al. Fluid: Physiologic amount of fluid in the joint space. No loose osteochondral bodies identified. Osseous/other: Normal marrow signal site is noted small regions of subarticular edema-like signal changes in the lat eral and patellofemoral compartments. No fracture or pathologic marrow replacing process. IMPRESSION: 1. 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 2. Mild patellar tendinopathy without tear. Reviewed, dictated and finalized at [facility]. IMPRESSION: 1. 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 2. Mild patellar tendinopathy without tear.
== END 2024-09-24 08:20 | disposition home or self-care (01) ==
PROVIDERS: PCP Orthopaedic Surgery; Visit Provider Chiropractor
DX: M17.11 Unilateral primary osteoarthritis, right knee (principal)
CPT/HCPCS: 73721